=== PATIENT | female | born 1950 | race Caucasian/White ===

== ENCOUNTER → 2018-10-13 | Outpatient (CLI) | payer OTHER | LOC: M.RAD 09:58 | DX: Z12.31 Encounter for screening mammogram for malignant neoplasm of breast (principal) ==

== ENCOUNTER → 2019-10-15 | Outpatient (CLI) | payer OTHER | LOC: M.RAD 12:55 | DX: Z12.31 Encounter for screening mammogram for malignant neoplasm of breast (principal) ==

== ENCOUNTER → 2019-12-11 | Outpatient (CLI) | payer OTHER ==
--- NOTE | 2019-12-11 17:08 | EXE ---
[facility] [address] [place] [address] STRESS ECHOCARDIOGRAM Name: LAURECHRISTO D Room: [facility]#: [id number] Admission: 12/11/19 Attend Phys: Alpesh Love MD Discharge: Date of : 46 Date of Service: 12/11/19 1708 Report #: [id number] THIS REPORT FOR: //name// APPROVED REPORT Study performed: 12/11/2019 15:09:30 Exam: Stress Echocardiogram Indication: Chest pain Patient Location: Out-Patient Stress Nurse: Meera Murillo RN Supervising Physician: Horacio Reinoso MD Ht: 5 ft 1 in HR: 78 bpm BP: 137/84 mmHg Medical History Cardiac Risk Factors: Hyperlipidemia, HTN Procedure The patient underwent an Exercise Stress Test using the Stevan Protocol. Blood pressure, heart rate, and EKG were monitored. An Echocardiogram was performed by dental laboratory technician apprentice in four stages in quad fashion. At peak stress, four selected images were obtained and placed side by side with resting images for comparison. Stress Test Details Stress Test: Exercise stress testing was performed using a Stevan protocol. HR Resting HR: 78 bpm Max Heart Rate (APMHR): 149 bpm Max HR Achieved: 154 bpm Target HR (85% APMHR): 126 bpm % of APMHR: 103 Recovery HR: 90 bpm HR response to stress: Normal HR response to stress BP Resting BP: 137/84 mmHg Max BP: 196/85 mmHg Recovery BP: 140/80 mmHg BP response to stress: Normal blood pressure response to stress. ECG Resting ECG: Sinus Rhythm Stress ECG: [place] [address] STRESS ECHOCARDIOGRAM Name: CHRISTO KELSEY Room: [facility]#: [id number] Admission: 12/11/19 Attend Phys: Alpesh Love MD Discharge: Date of : 46 Date of Service: 12/11/19 1708 Report #: [id number] ST Change: None Arrhythmia: None Recovery ECG: Sinus Rhythm Recovery ST Change: None Recovery Arrhythmia: None Clinical Reason for Termination: Completed protocol Exercise duration: 6 min 10 sec Highest Stage Achieved: Stage 2: 2.5 mph at 12% grade. Exercise capacity: 7.31 METs The patient tolerated standard Stevan protocol exercise without significant cardiac symptoms. Stress ECG Conclusion The baseline 12-lead EKG shows sinus rhythm without significant ST segment abnormalities. EKGs obtained during and post exercise showed sinus rhythm and sinus tachycardia with no significant ST segment changes when compared to baseline. There were no stress-induced arrhythmias. Pre-Stress Echo The resting Echocardiogram showed normal left ventricular contractility with an estimated Ejection Fraction of about 60-65%. The resting echocardiogram demonstrated normal wall motion in all wall segments. Normal wall motion in all segments on baseline images. Post-Stress Echo The stress Echocardiogram showed normal left ventricular contractility with an estimated Ejection Fraction of about >70%. Normal augmentation of wall motion in all segments on post stress images. Clinical No clinical or ECG evidence for ischemia. Conclusion Clinical Response: Non-ischemic Exercise Capacity: Average Stress ECG Response: Non-ischemic Stress Echo Images: Non-ischemic The left ventricle is normal in size and wall thickness in both the rest and stress images[place] [address] STRESS ECHOCARDIOGRAM Name: CHRISTO KELSEY Room: [facility]#: [id number] Admission: 12/11/19 Attend Phys: Alpesh Love MD Discharge: Date of : 46 Date of Service: 12/11/191707 Report #: [id number] Study Quality: Good <Conclusion> The left ventricle is normal in size and wall thickness in both the rest and stress images. <ELECTRONICALLY SIGNED> By: Horacio Reinoso MD, FACC 12/11/191707 07 07 Horacio Reinoso MD, FACC /INF
== END ==
LOC: M.CRD 14:41
DX: R07.9 Chest pain, unspecified (principal); I10 Essential (primary) hypertension; E78.5 Hyperlipidemia, unspecified

== ENCOUNTER → 2020-10-16 | Outpatient (CLI) | payer OTHER | LOC: M.RAD 09:54 | PROVIDERS: ATTEND Family Medicine | DX: Z12.31 Encounter for screening mammogram for malignant neoplasm of breast (principal) ==

== ENCOUNTER → 2021-10-09 | Outpatient (CLI) | payer OTHER | LOC: M.RAD 12:28 | PROVIDERS: ATTEND Family Medicine | DX: Z12.31 Encounter for screening mammogram for malignant neoplasm of breast (principal) ==